=== PATIENT | male | born 1970 | race African-American/Black ===

== ENCOUNTER 2024-06-21 08:44 | Emergency (ER) | payer MEDICAID ==
[~2024-06-21] VITALS: Ht 177.8 cm; Wt 91.0 kg
[~2024-06-21 08:44] MED LIST: HYDR25TA78 MT; LEVE750T4 MT
[2024-06-21 08:47] VITALS: O2SAT 97
[2024-06-21] MEDS: LEVETIRACETAM 500MG PREMIX 100 ML IV ONE ×2 (09:22)
[2024-06-21 10:08] LABS: BASOPHILS % 0.5 % (0.0-2.0); EOSINOPHILS % 1.5 % (0.0-5.0); HEMATOCRIT. 54.1 % (42.0-52.0); HEMOGLOBIN. 18.6 g/dL (14.0-18.0); LYMPHOCYTES % 21.6 % (20.0-50.0); MEAN CORPUSCULAR HEMOGLOBIN 32.5 pg (28.0-32.0); MEAN CORPUSCULAR HGB CONC 34.4 g/dL (31.0-37.0); MEAN CORPUSCULAR VOLUME 94.5 fL (80.0-94.0); MEAN PLATELET VOLUME 9.1 fl (7.4-10.4); MONOCYTES % 8.9 % (2.0-8.0); NEUTROPHILS % 67.5 % (40.0-76.0); PLATELET 164 x1000/uL (130-400); PROTHROMBIN TIME 10.9 sec (9.6-11.0); RED BLOOD CELL COUNT 5.72 mill/uL (4.7-6.1); RED CELL DISTRIBUTION WIDTH 13.5 % (11.6-14.6); WHITE BLOOD COUNT 8.8 x1000/uL (4.5-11.0)
[2024-06-21 10:17] LABS: CHLORIDE 104 mEq/L (98-107); POTASSIUM 4.3 mEq/L (3.5-5.1); SODIUM 134 mEq/L (136-145)
[2024-06-21 10:18] LABS: CALCIUM 9.5 mg/dL (8.7-10.4); CARBON DIOXIDE 22 mEq/L (21-32)
[2024-06-21 10:23] LABS: CREATININE 1.1 mg/dL (0.6-1.3); GLUCOSE 147 mg/dL (70-105); UREA NITROGEN BLOOD 8 mg/dL (9-23)
[2024-06-21 14:28] LABS: CLARITY URINE CLOUDY (CLEAR); COLOR URINE YELLOW (YELLOW); GLUCOSE URINE NEGATIVE (NEGATIVE); KETONES URINE NEGATIVE (NEGATIVE); LEUKOCYTE ESTERASE URINE 2+ (NEGATIVE); NITRITE URINE POSITIVE (NEGATIVE); OCCULT BLOOD URINE 1+ (NEGATIVE); PROTEIN URINE 1+ (NEGATIVE); SPECIFIC GRAVITY URINE 1.015 (1.005-1.030)
[2024-06-21] MEDS ORDERED: CIPR-263 MT (15:02)
[2024-06-21 15:16] LABS: SQUAMOUS EPITHELIAL CELL URINE 1+ /lpf (RARE/1+)
[2024-06-21 15:17] LABS: BACTERIA URINE 4+; WBC URINE 15-25 /hpf (0-2)
[2024-06-21 15:19] LABS: RBC URINE 0-2 /hpf (0-2)
[2024-06-21 15:42] VITALS: BP 135/91; PULSE 89; RESP 19; TEMP 37.00296; O2SAT 99
== END 2024-06-21 16:22 | disposition home or self-care (01) ==
LOC: ER 08:44
DX: R56.9 Unspecified convulsions (principal); N39.0 Urinary tract infection, site not specified; I10 Essential (primary) hypertension
CPT/HCPCS: 80048; 81003; 85025; 85610; 87086; 87186; 87077; 36415; 71045; 70450; 96365; 99285; J1953; Z7610 ×4